=== PATIENT | female | born 1980 | race American Indian/Alaskan Native ===

== ENCOUNTER 2019-05-13 19:06 | Emergency (ER) | payer MEDICAID ==
[2019-05-13 19:28] VITALS: BP 111/62
--- NOTE | 2019-05-13 22:43 | Emergency Department Report ---
ED ENT HPI - General Chief complaint: Neck Pain/Injury Stated complaint: KNOT ON HEAD Time Seen by Provider: 05/13/19 21:30 Source: patient Mode of arrival: Ambulatory Limitations: No Limitations - History of Present Illness Initial comments: There is a pleasant 38-year-old female presents to emergency department with a chief complaint of 2 painful bumps that popped up on her head this morning. She states she's not had any other symptoms. She denies any associated fever, chills, night sweats, headache, dizziness, blurry vision or any other associated symptoms. She denies any known past medical history other than hypertension and obesity which she is currently on lisinopril. She has allergies to penicillin which causes itching. - Related Data Previous Rx's Medication Instructions Recorded Last Taken Type Ciprofloxacin HCl [Cipro] 500 mg PO BID #20 tablet 04/17/13 Unknown Rx Fluconazole [Diflucan] 150 mg PO QDAY #1 tablet 04/17/13 Unknown Rx Phenol 1.4% [Chloraseptic] 1 spray MM TID #1 bottle 12/07/13 Unknown Rx Lisinopril [Zestril TAB] 20 mg PO QDAY #30 tablet 02/18/14 Unknown Rx Omeprazole [Prilosec] 20 mg PO QDAY #30 capsule. 02/18/14 Unknown Rx Naproxen 500 mg PO BID #20 tablet 05/13/19 Unknown Rx Allergies Allergy/AdvReac Type Severity Reaction Status Date / Time Penicillins Allergy Itching Verified 04/17/13 11:14 ED Dental HPI - General Chief complaint: Neck Pain/Injury Stated complaint: KNOT ON HEAD Time Seen by Provider: 05/13/19 21:30 Source: patient Mode of arrival: Ambulatory Limitations: No Limitations - Related Data Previous Rx's Medication Instructions Recorded Last Taken Type Ciprofloxacin HCl [Cipro] 500 mg PO BID #20 tablet 04/17/13 Unknown Rx Fluconazole [Diflucan] 150 mg PO QDAY #1 tablet 04/17/13 Unknown Rx Phenol 1.4% [Chloraseptic] 1 spray MM TID #1 bottle 12/07/13 Unknown Rx Lisinopril [Zestril TAB] 20 mg PO QDAY #30 tablet 02/18/14 Unknown Rx Omeprazole [Prilosec] 20 mg PO QDAY #30 capsule. 02/18/14 Unknown Rx Naproxen 500 mg PO BID #20 tablet 05/13/19 Unknown Rx Allergies Allergy/AdvReac Type Severity Reaction Status Date / Time Penicillins Allergy Itching Verified 04/17/13 11:14 ED Review of Systems ROS: Stated complaint: KNOT ON HEAD Other details as noted in HPI Constitutional: denies: chills, fever Eyes: denies: eye pain, eye discharge, vision change ENT: other (lymphadenopathy ). denies: ear pain, throat pain Respiratory: denies: cough, shortness of breath, wheezing Cardiovascular: denies: chest pain, palpitations Endocrine: no symptoms reported Gastrointestinal: denies: abdominal pain, nausea, diarrhea Genitourinary: denies: urgency, dysuria, discharge Musculoskeletal: denies: back pain, joint swelling, arthralgia Skin: denies: rash, lesions Neurological: denies: headache, weakness, paresthesias Psychiatric: denies: anxiety, depression Hematological/Lymphatic: denies: easy bleeding, easy bruising ED Past Medical Hx - Past Medical History Previous Medical History?: Yes Hx Hypertension: Yes Hx CVA: No Hx Heart Attack/AMI: No Hx Congestive Heart Failure: No Hx Diabetes: No Hx Deep Vein Thrombosis: No Hx Pulmonary Embolism: No Hx GERD: No Hx Liver Disease: No Hx Renal Disease: No Hx Sickle Cell Disease: No Hx Arthritis: No Hx Headaches / Migraines: No Hx Seizures: No Hx Kidney Stones: No Hx Psychiatric Treatment: No Hx Asthma: No Hx COPD: No Hx Tuberculosis: No Hx Dementia: No Hx HIV: No Additional medical history: Obesity - Surgical History Past Surgical History?: No Hx Coronary Stent: No Hx Open Heart Surgery: No Hx Pacemaker: No Hx Internal Defibrillator: No Hx Cholecystectomy: No Hx Appendectomy: No Hx Breast Surgery: No - Social History Smoking Status: Never Smoker Substance Use Type: None - Medications Home Medications: Home Medications Medication Instructions Recorded Confirmed Last Taken Type Ciprofloxacin HCl [Cipro] 500 mg PO BID #20 tablet 04/17/13 Unknown Rx Fluconazole [Diflucan] 150 mg PO QDAY #1 tablet 04/17/13 Unknown Rx Phenol 1.4% [Chloraseptic] 1 spray MM TID #1 bottle 12/07/13 Unknown Rx Lisinopril [Zestril TAB] 20 mg PO QDAY #30 tablet 02/18/14 Unknown Rx Omeprazole [Prilosec] 20 mg PO QDAY #30 capsule. 02/18/14 Unknown Rx Naproxen 500 mg PO BID #20 tablet 05/13/19 Unknown Rx ED Physical Exam - General Limitations: No Limitations General appearance: alert, in no apparent distress - Head Head exam: Present: atraumatic, normocephalic, other (to occipital tender mobile lymph nodes to the right occipital chain.) - Eye Eye exam: Present: normal appearance - ENT ENT exam: Present: mucous membranes moist - Neck Neck exam: Present: normal inspection - Respiratory Respiratory exam: Present: normal lung sounds bilaterally. Absent: respiratory distress - Cardiovascular Cardiovascular Exam: Present: regular rate, normal rhythm. Absent: systolic murmur, diastolic murmur, rubs, gallop - GI/Abdominal GI/Abdominal exam: Present: soft, normal bowel sounds - Extremities Exam Extremities exam: Present: normal inspection - Back Exam Back exam: Present: normal inspection - Neurological Exam Neurological exam: Present: alert, oriented X3 - Psychiatric Psychiatric exam: Present: normal affect, normal mood - Skin Skin exam: Present: warm, dry, intact, normal color. Absent: rash ED Course Vital Signs 05/13/19 05/13/19 19:19 19:26 Temperature 98.1 F 98.1 F Pulse Rate 94 H 94 H Respiratory 18 18 Rate Blood Pressure 131/62 111/62 O2 Sat by Pulse 99 100 Oximetry ED Medical Decision Making - Medical Decision Making Patient's exam was benign. Exam is consistent with lymphadenitis of the posterior cervical and occipital chain. There is no additional lymphadenopathy noted on the examination specifically none in the axillary, inguinal, anterior cervical, submental, submandibular, super or supraclavicular. I did educate her about concerning signs of lymph node swelling including persistent swelling or multiple different chains of swelling at this time this was not present. I have a very low suspicion for lymphoma or other acute process but did educate her to follow up with her primary doctor if the symptoms do not resolve in the next few days to a week for reevaluation. Patient verbalizes understanding of the di agnosis, treatment plan and follow up instructions all her questions were answered. - Differential Diagnosis lymphadenopathy, cyst, abscess Critical care attestation.: If time is entered above; I have spent that time in minutes in the direct care of this critically ill patient, excluding procedure time. ED Disposition Clinical Impression: Lymphadenopathy of head and neck Disposition: TO HOME OR SELFCARE Is pt being admited?: No Does the pt Need Aspirin: No Condition: Stable Instructions: Lymphadenopathy (ED) Prescriptions: Naproxen 500 mg PO BID #20 tablet Referrals: PRIMARY CARE, [Primary Care Provider] - 3-5 Days Time of Disposition: 22:53
== END 2019-05-13 23:00 | disposition home or self-care (01) ==
LOC: ED 19:06
DX: L04.0 Acute lymphadenitis of face, head and neck (principal); I10 Essential (primary) hypertension; E66.9 Obesity, unspecified; Z68.43 Body mass index [BMI] 50.0-59.9, adult; Z79.899 Other long term (current) drug therapy
CPT/HCPCS: 99282

== ENCOUNTER 2021-01-05 00:25 | Emergency (ER) | payer MEDICAID ==
[2021-01-05] MEDS ORDERED: TETANUS,DIPH,PERTUSS(ACELL) VACCINE 0.5 ML SYRINGE IM ONE (02:20)
[2021-01-05] MEDS ORDERED: IBUPROFEN 800 MG TAB PO ONE (02:20)
[2021-01-05 02:22] VITALS: BP 193/99
--- NOTE | 2021-01-05 02:24 | Emergency Department Report ---
- General Chief Complaint: Laceration/Recheck/Suture Stated Complaint: FALL/RT ARM INJURY/LEAKING PUS Time Seen by Provider: 01/05/21 01:31 Source: patient Mode of arrival: Ambulatory Limitations: No Limitations - History of Present Illness Initial Comments: 40-year-old -Fil[place] female presents to the emergency room for a concern abrasion on her right upper arm after having a fall 2 days ago. Patient states that she has been trying to keep it clean but comes in with gauze stuck to her wound and feels it may be infected. Patient denies any fever chills. Patient is unsure of her tetanus status. Patient states she does have a primary care provider at on [facility] but unaware of the name. She last saw them 6 months ago. Patient reports she is been taking Tylenol for the discomfort. She tried taking amoxicillin. She does report a penicillin allergy that causes her to have a yeast infection. Onset/Timin -: days(s) Extremity Location: Right: Arm (Upper arm) Place: outdoors Patient Tetanus UTD: No Context: accidental Associated Symptoms: pain Treatments Prior to Arrival: bandage, other (Tylenol) - Related Data Previous Rx's Medication Instructions Recorded Last Taken Type Ciprofloxacin HCl [Cipro] 500 mg PO BID #20 tablet 04/17/13 Unknown Rx Fluconazole [Diflucan] 150 mg PO QDAY #1 tablet 04/17/13 Unknown Rx Phenol 1.4% [Chloraseptic] 1 spray MM TID #1 bottle 12/07/13 Unknown Rx Omeprazole [Prilosec] 20 mg PO QDAY #30 capsule. 02/18/14 Unknown Rx lisinopriL [Zestril TAB] 20 mg PO QDAY #30 tablet 02/18/14 Unknown Rx Naproxen 500 mg PO BID #20 tablet 05/13/19 Unknown Rx cephALEXin [Keflex] 500 mg PO Q8HR 7 Days #21 cap 01/05/21 Unknown Rx Allergies Allergy/AdvReac Type Severity Reaction Status Date / Time Penicillins Allergy Itching Verified 04/17/13 11:14 ED Review of Systems ROS: Stated complaint: FALL/RT ARM INJURY/LEAKING PUS Other details as noted in HPI Comment: All other systems reviewed and negative ED Past Medical Hx - Past Medical History Previous Medical History?: Yes Hx Hypertension: Yes Hx CVA: No Hx Heart Attack/AMI: No Hx Congestive Heart Failure: No Hx Diabetes: No Hx Deep Vein Thrombosis: No Hx Pulmonary Embolism: No Hx GERD: No Hx Liver Disease: No Hx Renal Disease: No Hx Sickle Cell Disease: No Hx Arthritis: No Hx Headaches / Migraines: No Hx Seizures: No Hx Kidney Stones: No Hx Psychiatric Treatment: No Hx Asthma: No Hx COPD: No Hx Tuberculosis: No Hx Dementia: No Hx HIV: No Additional medical history: Obesity - Surgical History Past Surgical History?: No Hx Coronary Stent: No Hx Open Heart Surgery: No Hx Pacemaker: No Hx Internal Defibrillator: No Hx Cholecystectomy: No Hx Appendectomy: No Hx Breast Surgery: No - Social History Smoking Status: Never Smoker Substance Use Type: None - Medications Home Medications: Home Medications Medication Instructions Recorded Confirmed Last Taken Type Ciprofloxacin HCl [Cipro] 500 mg PO BID #20 tablet 04/17/13 Unknown Rx Fluconazole [Diflucan] 150 mg PO QDAY #1 tablet 04/17/13 Unknown Rx Phenol 1.4% [Chloraseptic] 1 spray MM TID #1 bottle 12/07/13 Unknown Rx Omeprazole [Prilosec] 20 mg PO QDAY #30 capsule.dr 02/18/14 Unknown Rx lisinopriL [Zestril TAB] 20 mg PO QDAY #30 tablet 02/18/14 Unknown Rx Naproxen 500 mg PO BID #20 tablet 05/13/19 Unknown Rx cephALEXin [Keflex] 500 mg PO Q8HR 7 Days #21 cap 01/05/21 Unknown Rx ED Physical Exam - General Limitations: No Limitations General appearance: alert, in no apparent distress, obese - Head Head exam: Present: atraumatic, normocephalic - Eye Eye exam: Present: normal appearance, PERRL (Wears glasses), other - ENT ENT exam: Present: mucous membranes moist, normal external ear exam - Neck Neck exam: Present: normal inspection, full ROM - Respiratory Respiratory exam: Absent: accessory muscle use - Cardiovascular Cardiovascular Exam: Present: regular rate - Back Exam Back exam: Present: normal inspection, full ROM - Neurological Exam Neurological exam: Present: alert, oriented X3, CN II-XII intact, normal gait - Psychiatric Psychiatric exam: Present: normal affect, normal mood - Skin Skin exam: Present: abrasion (Large abrasion) ED Medical Decision Making - Medical Decision Making 40-year-old -Fil[place] female presents to the emergency room for a concern abrasion on her right upper arm after having a fall 2 days ago. Patient states that she has been trying to keep it clean but comes in with gauze stuck to her wound and feels it may be infected. Patient denies any fever chills. Patient is unsure of her tetanus status. Patient states she does have a primary care provider at on [facility] but unaware of the name. She last saw them 6 months ago. Patient reports she is been taking Tylenol for the discomfort. She tried taking amoxicillin. She does report a penicillin allergy that causes her to have a yeast infection. Abrasion was cleaned debrided from old bandage placed a Vaseline gauze bandage and tape. Patient be discharged home on Keflex 500 mg p.o. twice daily for 7 days. Ibuprofen given for pain management here in triage and will be discharge home with prescription for ibuprofen 800 mg every 8 hours as needed. Patient be given a referral to the wound care clinic to follow-up if she has any further concerns. Critical care attestation.: If time is entered above; I have spent that time in minutes in the direct care of this critically ill patient, excluding procedure time. ED Disposition Clinical Impression: Abrasion, upper arm w/o infection Disposition: [id number]-01 TO HOME OR SELFCARE Is pt being admited?: No Does the pt Need Aspirin: No Condition: Stable Instructions: Wound Care, Adult, Abrasion, Reob-ag-Ltew Additional Instructions: Complete antibiotics as prescribed. Pain medication as needed. Please change dressing daily. Follow-up at the wound care clinic if any further concerns. Prescriptions: cephALEXin [Keflex] 500 mg PO Q8HR 7 Days #21 cap Referrals: ROSINA REN MD [Staff Physician] - 3-5 Days [facility]] - 3-5 Days Forms: Work/School Release Form(ED)
== END 2021-01-05 02:50 | disposition home or self-care (01) ==
LOC: ED 00:25
DX: S40.811A Abrasion of right upper arm, initial encounter (principal); I10 Essential (primary) hypertension; Z79.2 Long term (current) use of antibiotics; Z79.899 Other long term (current) drug therapy; Z88.0 Allergy status to penicillin; W19.XXXA Unspecified fall, initial encounter; Y93.89 Activity, other specified; Y92.89 Other specified places as the place of occurrence of the external cause; Y99.8 Other external cause status
CPT/HCPCS: 90471; 90715; 99282